=== PATIENT | male | born 1950 | race African-American/Black ===

== ENCOUNTER 2018-03-12 13:38 | Inpatient (IN) | payer MEDICARE, OTHER ==
[2018-03-12 14:58] LABS: ADD MAN DIFF? NO
[2018-03-12 15:06] LABS: BASOPHILS % 0.3 % (0.0-2.0); EOSINOPHILS # 0.1 10^3/ul (0.0-0.5); EOSINOPHILS % 0.4 % (0.0-7.0); HEMATOCRIT 46.6 % (42.0-52.0); HEMOGLOBIN 14.9 g/dl (14.0-18.0); LYMPHOCYTES % 7.3 % (15.0-51.0); MEAN CORPUSCULAR HEMOGLOBIN 30.3 pg (29.0-33.0); MEAN CORPUSCULAR VOLUME 94.9 fl (82.0-101.0); MEAN PLATELET VOLUME 10.1 fl (7.4-10.4); MONOCYTE # 0.8 10^3/ul (0.3-0.9); MONOCYTES % 6.1 % (0.0-11.0); NEUTROPHIL # 11.9 10^3/ul (1.6-7.5); NEUTROPHILS % 85.5 % (39.0-77.0); PLATELET COUNT 156 10^3/UL (140-415); RED BLOOD COUNT 4.91 10^6/ul (4.70-6.10); RED CELL DISTRIBUTION WIDTH 14.2 % (11.5-14.5)
[2018-03-12 15:06] LABS: WHITE BLOOD COUNT 13.9 10^3/ul (4.8-10.8)
[2018-03-12] MEDS: SODIUM CHLORIDE 0.9% 1L BAG IV* (15:21)
[2018-03-12 15:24] LABS: ANION GAP 7 (5-13); BLOOD UREA NITROGEN 23 mg/dl (7-20); CALCIUM 9.1 mg/dl (8.4-10.2); CARBON DIOXIDE 26 mmol/L (21-31); CHLORIDE 99 mmol/L (97-110); CREATININE 0.91 mg/dl (0.61-1.24); Estimated GFR > 60 mL/min (>60); GLUCOSE 101 mg/dl (70-220); POTASSIUM 4.4 mmol/L (3.5-5.1); SODIUM 132 mmol/L (135-144)
[2018-03-12] MEDS: CEFEPIME 2GM/50 ML (PMX) 50 ML IVPB (15:26)
[2018-03-12] MEDS: ACETAMINOPHEN 325 MG TAB PO (15:26)
[2018-03-12 15:33] LABS: INR 1.06; PROTIME 13.9 Sec (11.9-14.9); PT RATIO 1.1
[2018-03-12 15:35] LABS: TROPONIN-I < 0.012 ng/ml (0.000-0.120)
[2018-03-12] MEDS: VANCOMYCIN 1 GM (PMX) 250 ML IVPB (17:09)
[2018-03-12] MEDS ORDERED: ONDANSETRON 4 MG INJ IV ×2 (18:30→19:30)
[2018-03-12] MEDS ORDERED: ACETAMINOPHEN 325 MG TAB PO ×2 (18:30→19:30)
[2018-03-12] MEDS ORDERED: HYDROCODONE/APAP (5/325) TAB PO (19:30)
[2018-03-12] MEDS ORDERED: morphine 2 MG INJ IV (19:30)
[2018-03-12] MEDS ORDERED: ZOLPIDEM 5 MG TAB PO (19:30)
[2018-03-12] MEDS ORDERED: DOCUSATE SODIUM 100 MG CAP PO (19:30)
[2018-03-12] MEDS ORDERED: NACL 0.9% 3 ML SYG IV (19:30)
[2018-03-12] MEDS: CEFTRIAXONE 1 GM/50 ML (PMX) 50 ML IVPB (20:46)
[2018-03-12] MEDS: SOD CHLORIDE 0.9% 1,000 ML IV (20:46)
[2018-03-12] MEDS: AZITHROMYCIN 500MG/NS (PMX) 250 ML IVPB (22:33)
[2018-03-12 23:05] LABS: LACTIC ACID 1.2 mmol/L (0.5-2.0)
[2018-03-13] MEDS: SOD CHLORIDE 0.9% 1,000 ML IV (06:00)
[2018-03-13 06:16] LABS: ADD MAN DIFF? NO; HAAIG REFLEX REFLEX FILED
[2018-03-13 06:23] LABS: WHITE BLOOD COUNT 10.9 10^3/ul (4.8-10.8)
[2018-03-13 06:23] LABS: BASOPHILS % 0.3 % (0.0-2.0); EOSINOPHILS # 0.1 10^3/ul (0.0-0.5); EOSINOPHILS % 0.9 % (0.0-7.0); HEMOGLOBIN 14.6 g/dl (14.0-18.0); LYMPHOCYTES # 1.8 10^3/ul (0.8-2.9); LYMPHOCYTES % 16.1 % (15.0-51.0); MEAN CORPUSCULAR HEMOGLOBIN 30.3 pg (29.0-33.0); MEAN CORPUSCULAR HGB CONC 31.7 g/dl (32.0-37.0); MEAN CORPUSCULAR VOLUME 95.4 fl (82.0-101.0); MEAN PLATELET VOLUME 11.1 fl (7.4-10.4); MONOCYTE # 0.9 10^3/ul (0.3-0.9); MONOCYTES % 8.2 % (0.0-11.0); NEUTROPHIL # 8.1 10^3/ul (1.6-7.5); NEUTROPHILS % 74.2 % (39.0-77.0); PLATELET COUNT 174 10^3/UL (140-415); RED BLOOD COUNT 4.82 10^6/ul (4.70-6.10); RED CELL DISTRIBUTION WIDTH 14.2 % (11.5-14.5)
[2018-03-13 07:16] LABS: HEPATITIS B SURFACE ANTIGEN NEGATIVE (NEGATIVE)
[2018-03-13 07:18] LABS: HEMOGLOBIN A1C 5.3 % (0-5.9)
[2018-03-13 07:33] LABS: HEPATITIS B CORE ANTIBODY REACTIVE (NEGATIVE); HEPATITIS C VIRAL ANTIBODY REACTIVE (NEGATIVE); HIV 1&2 ANTIBODY NEGATIVE (NEGATIVE)
[2018-03-13 10:20] LABS: ANION GAP 8 (5-13); BLOOD UREA NITROGEN 14 mg/dl (7-20); CALCIUM 8.8 mg/dl (8.4-10.2); CARBON DIOXIDE 25 mmol/L (21-31); CHLORIDE 106 mmol/L (97-110); CREATININE 0.81 mg/dl (0.61-1.24); Estimated GFR > 60 mL/min (>60); GLUCOSE 52 mg/dl (70-220); MAGNESIUM 1.9 mg/dl (1.7-2.5); PHOSPHORUS 3.1 mg/dl (2.5-4.9); POTASSIUM 4.3 mmol/L (3.5-5.1); SODIUM 139 mmol/L (135-144)
[2018-03-13] MEDS: AZITHROMYCIN 500MG/NS (PMX) 250 ML IVPB (20:19)
[2018-03-13] MEDS: CEFTRIAXONE 1 GM/50 ML (PMX) 50 ML IVPB (22:17)
== END 2018-03-14 12:30 | disposition left against medical advice (07) | DRG 871 ==
LOC: E/R 13:38 → 6WM 18:14
DX: A41.9 Sepsis, unspecified organism (principal); J18.9 Pneumonia, unspecified organism; E87.1 Hypo-osmolality and hyponatremia; I38 Endocarditis, valve unspecified; F14.10 Cocaine abuse, uncomplicated; F11.10 Opioid abuse, uncomplicated; Z72.0 Tobacco use
CPT/HCPCS: 36415; 71045; 80048; 83036; 83605; 83735; 84100; 84484; 85025; 85610; 85730; 86703; 86704; 86709; 86803; 87040; 87340; 93005; 93306; 96374; 96375; 99291-25; G0378